=== PATIENT | female | born 2005 | race Caucasian/White ===

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

== ENCOUNTER → 2024-04-02 | Outpatient (CLI) | payer OTHER ==
--- NOTE | 2024-04-02 11:16 | US ---
EXAMINATION TYPE: US abdomen complete DATE OF EXAM: 04/02/2024 COMPARISON: CT chest abdomen and pelvis 04/24/2022 CLINICAL INDICATION: Female, 18 years old with history of R10.9 UNSPECIFIED ABDOMINAL PAIN; Bloating pain TECHNIQUE: Multiple sonographic images of the abdomen are obtained. FINDINGS: EXAM MEASUREMENTS: Liver Length: 15 cm Gallbladder Wall: .1 cm CBD: .5 cm Spleen: 9.4 cm Right Kidney: 10.6 x 4.2 x 4.1 cm Left Kidney: 10.1 x 5.4 x 4.3 cm DRUM SANDER OFFBEARER NOTES: Pancreas: Obscured by bowel gas Liver: wnl Gallbladder: No stones seen Evidence for sonographic Larkin's sign: No CBD: wnl Spleen: wnl Right Kidney: No hydronephrosis or masses seen Left Kidney: No hydronephrosis or masses seen Upper IVC: wnl Abd Aorta: wnl The liver is homogenous. The intrahepatic portion of the IVC and proximal abdominal aorta are within normal limits. There is no evidence of cholelithiasis. Common bile duct is unremarkable. The panc reas is obscured by overlying bowel gas. The spleen is unremarkable. Kidneys are symmetric and free of hydronephrosis. No renal solid mass or nephrolithiasis. No renal lesions are seen. IMPRESSION: No ultrasound evidence for acute process.
== END | disposition home or self-care (01) ==
LOC: RADUSWWP 08:59
PROVIDERS: ATTEND Internal Medicine Geriatric Medicine
DX: R10.9 Unspecified abdominal pain (principal)
CPT/HCPCS: 76700

== ENCOUNTER 2024-06-07 09:45 | Day surgery (SDC) | payer OTHER ==
[2024-06-07] MEDS ORDERED: PROPOFOL 10 MG/ML 20 ML VIAL IV ONE (09:56)
[2024-06-07] MEDS ORDERED: LIDOCAINE 1% INJ 10MG/ML (20 ML MDV) ONE (09:56)
--- NOTE | 2024-06-14 15:55 | PCN ---
PROCEDURE NOTE REQUESTING PHYSICIAN: Erin Browne. HISTORY: The patient is a 18-year-old pleasant young female, scheduled for an upper endoscopy as a part of evaluation of chronic epigastric pain for the last 1 year's duration, recently has been on Pepcid 20 mg twice daily with some relief. She does complain of occasional nausea, but no emesis, has severe abdominal bloating postprandially. In view of this, she is scheduled for an upper endoscopy to evaluate further. PROCEDURE PERFORMED: EGD with biopsy. PREOPERATIVE DIAGNOSES: Epigastric pain and abdominal bloating. IV SEDATION: Per Anesthesia. DESCRIPTION OF PROCEDURE: After informed consent was obtained from the patient, she was brought into the endoscopy unit. IV conscious sedation was administered by Anesthesia under continuous monitoring. Initially, the Olympus GIF-180 video endoscope inserted into the mouth, esophagus intubated without any difficulty, and was gradually advanced into the stomach and duodenum and carefully examined. Bulb and the second part of the duodenum appeared normal. Biopsies were done from the duodenum to evaluate for celiac disease. Scope was then withdrawn to the stomach, adequately insufflated with air, and upon careful examination, mucosa of the antrum, body, cardia had minimal gastritis and biopsies for Helicobacter pylori were done. On retroflexion, the cardia and the fundus appeared normal. The scope was then withdrawn to the esophagus. The GE junction was located at 40 cm from the incisors. It appeared regular. There was no erythema, erosions, or ulcerations. The entire length of the esophagus appeared normal, and the patient tolerated the procedure well. IMPRESSION: 1. Mild antral gastritis. 2. No evidence of esophagitis or peptic ulcer disease. RECOMMENDATIONS: Findings of this examination were discussed with the patient as well as the family. She was advised to follow up with the biopsy results. Continue with Pepcid 20 mg twice daily and follow anti-reflux measures. Follow up in office in 2 to 3 weeks. MMODL / IJN: [id number] /
== END 2024-06-07 10:55 ==
LOC: ORWHC2ENDO 09:45
PROVIDERS: ATTEND Internal Medicine Gastroenterology
DX: R10.13 Epigastric pain
CPT/HCPCS: 43239; 81025; 88305